=== PATIENT | female | born 1990 | race American Indian/Alaskan Native ===

== ENCOUNTER 2017-07-12 10:40 | Outpatient (CLI) | payer MEDICAID ==
[2017-07-12 11:23] LABS: Bilirubin,Urine NEG (Negative); Blood,Urine NEG (Negative); Color,Urine Yellow (Yellow); Mucus,Urine 1+ /HPF; Protein,Urine <15 mg/dL mg/dL (Negative); Urobilinogen,Urine < 2.0 mg/dL (<2.0)
[2017-07-12 11:42] VITALS: BP 111/61
[2017-07-12] MEDS ORDERED: NORMOSOL-R PH 7.4 1,000 ML IV ONE ×2 (12:00→13:23)
== END 2017-07-12 13:30 | disposition home or self-care (01) ==
LOC: TRG 10:40
PROVIDERS: ATTEND Obstetrics & Gynecology
DX: O47.03 False labor before 37 completed weeks of gestation, third trimester (principal); Z3A.30 30 weeks gestation of pregnancy
CPT/HCPCS: 59025; 81001; 96360

== ENCOUNTER 2017-07-24 13:45 | Outpatient (CLI) | payer MEDICAID ==
[2017-07-24 15:07] LABS: Bacteria,Urine 2+ /HPF (Negative); Bilirubin,Urine NEG (Negative); Blood,Urine NEG (Negative); Color,Urine Yellow (Yellow); Hyaline Casts,Urine 1 /LPF; Mucus,Urine FEW /HPF; Protein,Urine <15 mg/dL mg/dL (Negative); Urobilinogen,Urine < 2.0 mg/dL (<2.0)
[2017-07-24 15:09] LABS: Hematocrit 33.7 % (30.3-42.9); Hemoglobin 11.2 gm/dl (10.1-14.3); Mean Corpuscular HGB Conc 33 % (30-34); Mean Corpuscular Hemoglobin 29 pg (28-32); Mean Corpuscular Volume 88 fl (79-97); Platelet Count 240 K/mm3 (140-440); Red Blood Count 3.84 M/mm3 (3.65-5.03); Red Cell Distribution Width 13.5 % (13.2-15.2)
[2017-07-24 15:32] LABS: Alanine Aminotransferase 14 units/L (7-56); Uric Acid 3.3 mg/dL (3.5-7.6)
[2017-07-24 15:53] VITALS: BP 112/59
== END 2017-07-24 15:55 | disposition home or self-care (01) ==
LOC: TRG 13:45
PROVIDERS: ATTEND Obstetrics & Gynecology
DX: O47.03 False labor before 37 completed weeks of gestation, third trimester (principal); Z79.899 Other long term (current) drug therapy; Z3A.32 32 weeks gestation of pregnancy
CPT/HCPCS: 36415; 59025; 81001; 82565; 82962; 83615; 84450; 84460; 84550; 85027

== ENCOUNTER 2017-08-13 10:06 | Outpatient (CLI) | payer MEDICAID ==
[2017-08-13 10:27] VITALS: BP 128/72
[2017-08-13] MEDS ORDERED: LACTATED RINGERS 500 ML IV ONE (11:43)
--- NOTE | 2017-08-13 14:03 | Ultrasound Report ---
ULTRASOUND OB LIMITED History: well being, evaluate amniotic fluid Technique: Transabdominal ultrasound with Doppler interrogation. Gestation: Single Position: Cephalic Amniotic Fluid: Normal EDSON = 14.7 cm Heart Rate: 146 BPM
== END 2017-08-13 13:02 | disposition home or self-care (01) ==
LOC: TRG 10:06
PROVIDERS: ATTEND Obstetrics & Gynecology
DX: O47.03 False labor before 37 completed weeks of gestation, third trimester (principal); Z3A.34 34 weeks gestation of pregnancy
CPT/HCPCS: 59025; 76815

== ENCOUNTER 2017-08-26 19:23 | Outpatient (CLI) | payer OTHER, MEDICAID ==
[2017-08-26 20:31] VITALS: BP 108/68
[2017-08-26 21:01] LABS: Hematocrit 31.7 % (30.3-42.9); Hemoglobin 10.5 gm/dl (10.1-14.3); Mean Corpuscular HGB Conc 33 % (30-34); Mean Corpuscular Hemoglobin 29 pg (28-32); Mean Corpuscular Volume 86 fl (79-97); Platelet Count 240 K/mm3 (140-440); Red Blood Count 3.67 M/mm3 (3.65-5.03)
[2017-08-26 21:06] LABS: Bilirubin,Urine NEG (Negative); Blood,Urine NEG (Negative); Color,Urine Yellow (Yellow); Mucus,Urine 1+ /HPF; Protein,Urine <15 mg/dL mg/dL (Negative); Urobilinogen,Urine < 2.0 mg/dL (<2.0)
[2017-08-26 21:20] LABS: Alanine Aminotransferase 12 units/L (7-56); Uric Acid 3.4 mg/dL (3.5-7.6)
--- NOTE | 2017-08-26 22:26 | Ultrasound Report ---
FINAL REPORT PROCEDURE: US ABDOMEN LIMITED TECHNIQUE: Real-time sonography in multiple planes of the gallbladder fossa and CBD with imaging of the adjacent liver, pancreas, and right kidney was performed with image documentation. CPT 40997 HISTORY: RIGHT UPPER QUADRANT PAIN COMPARISON: No prior studies are available for comparison. FINDINGS: Liver: Normal size and echotexture with no evidence of cystic or solid mass lesion. Gallbladder: There is an echogenic structure with posterior shadowing at the gallbladder neck, likely a gallstone. No gallbladder wall thickening or pericholecystic fluid. Intrahepatic bile ducts: Normal . Extrahepatic bile ducts: Common bile duct measures 4 millimeters in caliber. Pancreas: Not well-visualized. Right kidney: Normal echotexture. No focal renal mass, calculus, or hydronephrosis. Other: No free fluid. IMPRESSION: Probable gallstone in the gallbladder neck. No sonographic evidence of cholecystitis. No biliary ductal dilatation
--- NOTE | 2017-08-26 22:28 | Ultrasound Report ---
FINAL REPORT PROCEDURE: US OB BPP WO NON-STRESS TECHNIQUE: Sonographic evaluation for breathing, movement, tone, and amniotic fluid volume was performed. CPT 93972 HISTORY: WELL BEING; EDSON COMPARISON: No prior studies are available for comparison. FINDINGS: Amniotic fluid volume: Normal-score 2. At least one vertical pocket > 2 cm or more in vertical axis. breathing: Normal-score 2. movement: Normal-score 2. tone: Normal. Score: 8 of 8. IMPRESSION: Normal biophysical profile.
--- NOTE | 2017-08-26 22:28 | Ultrasound Report ---
FINAL REPORT PROCEDURE: US OB LIMITED TECHNIQUE: Real-time limited sonographic examination was performed for evaluation of fluid volume for each fetus with image documentation (1 or more fetuses). CPT 59078 HISTORY: WELL BEING; EDSON COMPARISON: No prior studies are available for comparison. FINDINGS: There is a single intrauterine gestation. heart rate is 156 beats per minute. Amniotic fluid index measures 10.9 centimeters. IMPRESSION: Amniotic fluid index measures 10.9 centimeters
== END 2017-08-26 22:32 | disposition home or self-care (01) ==
LOC: TRG 19:23
PROVIDERS: ATTEND Obstetrics & Gynecology
DX: O26.893 Other specified pregnancy related conditions, third trimester (principal); O47.02 False labor before 37 completed weeks of gestation, second trimester; R10.11 Right upper quadrant pain; Z3A.36 36 weeks gestation of pregnancy
CPT/HCPCS: 36415; 59025; 76705; 76815; 76819; 81001; 82565; 83615; 84450; 84460; 84550; 85027

== ENCOUNTER 2017-09-08 13:33 | Outpatient (CLI) | payer OTHER, MEDICAID ==
[2017-09-08 13:53] VITALS: BP 118/71
--- NOTE | 2017-09-08 16:11 | Ultrasound Report ---
LIMITED OB ULTRASOUND: NST. Gestation: More Position: Cephalic EDSON = 9.1 cm Heart Rate: 143 BPM age 38 weeks 3 days. Comment: Low normal amniotic fluid volume. BIOPHYSICAL PROFILE: 2 - breathing movements 2 - movements 2 to - posture and tone - Qualitative amniotic fluid volume 8 - TOTAL SCORE OF POSSIBLE 8 Heart Rate (bpm) 138
== END 2017-09-08 15:25 | disposition home or self-care (01) ==
LOC: TRG 13:33
PROVIDERS: ATTEND Obstetrics & Gynecology
DX: O47.1 False labor at or after 37 completed weeks of gestation (principal); Z3A.38 38 weeks gestation of pregnancy
CPT/HCPCS: 59025; 76815; 76819

== ENCOUNTER 2017-09-11 04:08 | Outpatient (CLI) | payer OTHER, MEDICAID ==
[2017-09-11] MEDS ORDERED: VISTARIL PO ONE (06:20)
[2017-09-12 04:11] VITALS: BP 130/60
== END 2017-09-11 07:43 | disposition home or self-care (01) ==
LOC: TRG 04:08
PROVIDERS: ATTEND Obstetrics & Gynecology
DX: O47.1 False labor at or after 37 completed weeks of gestation (principal); Z3A.38 38 weeks gestation of pregnancy
CPT/HCPCS: 59025; Q0177

== ENCOUNTER 2017-09-11 13:02 | Inpatient (IN) | payer OTHER, MEDICAID ==
[2017-09-11] MEDS ORDERED: MORPHINE IM ONE (15:36)
[2017-09-11] MEDS ORDERED: MORPHINE ONE (16:34)
[2017-09-11] MEDS: LACTATED RINGERS 1,000 ML IV SCH ×3 (20:00→23:35)
--- NOTE | 2017-09-11 20:44 | Ultrasound Report ---
FINAL REPORT PROCEDURE: US OB BPP WO NON-STRESS TECHNIQUE: Sonographic evaluation for breathing, movement, tone, and amniotic fluid volume was performed. CPT 72383 HISTORY: well being COMPARISON: No prior studies are available for comparison. FINDINGS: Single live intrauterine gestation is noted with a heart rate of 146 beats per minute Amniotic fluid volume: Score 0. Largest pocket is 1.5 centimeters breathing: Normal-score 2. movement: Normal-score 2. tone: Normal. Score: 8 of 8. IMPRESSION: Total score for biophysical profile is 6/8
--- NOTE | 2017-09-11 20:45 | Ultrasound Report ---
FINAL REPORT PROCEDURE: US OB LIMITED TECHNIQUE: Real-time limited sonographic examination was performed for evaluation of adenoid fluid index for each fetus with image documentation (1 or more fetuses). CPT 39241 HISTORY: LEAKING amniotic fluid COMPARISON: No prior studies are available for comparison. FINDINGS: Single live intrauterine gestation is noted with heart rate of 146 beats per minute. Amniotic fluid index is 3.6 centimeters. Presentation is cephalic. IMPRESSION: Amniotic fluid index is decreased measuring 3.6 centimeters
[2017-09-11] MEDS ORDERED: LACTATED RINGERS 1,000 ML ONE (20:57)
[2017-09-11] MEDS ORDERED: BRETHINE IVP PRN (21:39)
[2017-09-11] MEDS ORDERED: XYLOCAINE 2% INFILTRATI ONE (21:39)
[2017-09-11] MEDS ORDERED: SUBLIMAZE IV PRN (21:39)
[2017-09-11] MEDS ORDERED: ZOFRAN IV PRN (21:39)
[2017-09-11] MEDS ORDERED: NUBAIN IV PRN (21:39)
[2017-09-11] MEDS ORDERED: MINERAL OIL PO PRN (21:39)
[2017-09-11] MEDS ORDERED: STADOL IV PRN (21:39)
[2017-09-11] MEDS ORDERED: BRETHINE SUB-Q PRN (21:39)
[2017-09-11] MEDS ORDERED: SUBLIMAZE ONE (21:43)
[2017-09-11 21:58] LABS: Hematocrit 33.4 % (30.3-42.9); Hemoglobin 10.9 gm/dl (10.1-14.3); Mean Corpuscular HGB Conc 33 % (30-34); Mean Corpuscular Hemoglobin 28 pg (28-32); Mean Corpuscular Volume 85 fl (79-97); Platelet Count 257 K/mm3 (140-440); Red Blood Count 3.93 M/mm3 (3.65-5.03); Red Cell Distribution Width 14.5 % (13.2-15.2)
[2017-09-11] MEDS ORDERED: PITOCin/NS 30 UNIT/500ML 30 UNITS/500 ML BAG IV SCH ×2 (22:00)
[2017-09-11] MEDS ORDERED: PITOCin/NS 20 UNIT/1000ML DRIP 20 UNITS/1,000 ML BAG IV SCH (22:00)
[2017-09-11] MEDS ORDERED: NARCAN 2 MG/2 ML IV PRN (23:24)
[2017-09-11] MEDS ORDERED: ePHEDrine SULFATE IV PRN (23:24)
[2017-09-11] MEDS: ePHEDrine SULFATE IV PRN ×2 (23:31→23:44)
[2017-09-11] MEDS ORDERED: fentaNYL-BUPIV 2 MCG/ML-0.125% 200 MCG/100 ML BAG EPIDURAL SCH (23:45)
[2017-09-12] MEDS: LACTATED RINGERS 1,000 ML IV SCH (02:11)
--- NOTE | 2017-09-12 02:50 | History and Physical Report ---
History of Present Illness Date of examination: 09/12/17 Date of admission: 09/11/17 20:30 Chief complaint: IUP@39, oligohydramnios, early labor History of present illness: Patient presented yesterday twice c/o contractions, she was noted to have varible decelerations and found to have EDSON of 3, on recheck she was 3cm. She progressed to 8cm/90(BBOW)/-2. Past History : 1 Term Births: 0 Premature Births: 0 Living Children: 0 Para: 0 Mult. Births: 0 Prev : 0 Prev. attempt? 0 Aborta: 0 Elect. Ab: 0 Spont. Ab: 0 Ectopics: 0 Past Medical History: Negative Past Medical History Past Surgical History: negative Past Medical History Anesthesia Complications: negative Anemia: negative Autoimmune Disorder: negative Bleeding Disorder: negative Blood Transfusions: negative Breast Disease: negative Diabetes: negative Heart Disease: negative Hypertension: negative Hepatitis/Liver Disease: negative Kidney Disease/UTI: negative Neurologic/Epilepsy/Migraines: negative Phlebitis/Varicosities: negative Psychiatric: negative Pulmonary Disease/Asthma: negative Thyroid Disease: negative Hospitalizations: negative Surgery (Non-mainframe programmer analyst): negative Abnormal PAP: negative SANDRA Exposure: negative Infertility: negative Uterine Anomaly: negative Uterine Surgery (not C/S): negative Other Gynecologic Problems: negative Family Hx: Mother - ovarian Cancer () Social Hx: Single not E/D/S Infection History Hx of STD: none HIV Risk Eval: no Varicella/Chicken Pox Status: Previous Disease Genetic History Congenital Heart Defect: Mom: no Dad: no Sobia Disease: Mom: no Dad: no Thalassemia Mom: no Dad: no Neural Tube Defect Mom: no Dad: no Down's Syndrome Mom: no Dad: no Benny-Sachs Mom: no Dad: no Sickle Cell Disease/Trait Mom: no Dad: no Hemophilia Mom: no Dad: no Muscular Dystrophy Mom: no Dad: no Cystic Fibrosis Mom: no Dad: no [place] Chorea Mom: no Dad: no Mental Retardation Mom: no Dad: no Fragile X Mom: no Dad: no Other Genetic/Chromosomal Disorder Mom: no Dad: no Child w/other defect Mom: no Dad: no Enviromental Exposures Xray Exposure: no Medication, drug, or alcohol use since LMP: no Chemical/Other Exposure: no Exposure to Cat Liter: no Hx of Parvovirus (Fifth Disease): no Occupational Exposure to Children: none Active Medications (reviewed today): None Current Allergies (reviewed today): * AMOXICILLIN (Critical) Past History - Obstetrical History Expected Date of Delivery: 09/19/17 Actual Gestation: 39 Week(s) 0 Day(s) : 1 Medications and Allergies Allergies Allergy/AdvReac Type Severity Reaction Status Date / Time No Known Allergies Allergy Verified 08/13/17 10:07 Home Medications Medication Instructions Recorded Confirmed Last Taken Type No Known Home Medications [No 08/13/17 09/11/17 Unknown History Reported Home Medications] Active Meds: Active Medications Butorphanol Tartrate (Stadol) 2 mg IV Q2H PRN PRN Reason: Pain , Severe (7-10) Ephedrine Sulfate (Ephedrine Sulfate) 10 mg IV Q2M PRN PRN Reason: Hypotension Last Admin: 09/11/17 23:50 Dose: 10 mg Fentanyl (Sublimaze) 100 mcg IV Q2H PRN PRN Reason: Labor Pain Last Admin: 09/11/17 21:46 Dose: 100 mcg Lactated Ringer's (Lactated Ringers) 1,000 mls @ 125 mls/hr IV DIRECT LYDIA Last Admin: 09/12/17 02:11 Dose: 125 mls/hr Oxytocin/Sodium Chloride (Pitocin/Ns 20 Unit/1000ml Drip) 20 units in 1,000 mls @ 125 mls/hr IV DIRECT LYDIA Oxytocin/Sodium Chloride (Pitocin/Ns 30 Unit/500ml) 30 units in 500 mls @ 1 mls /hr IV TITR LYDIA; Protocol Oxytocin/Sodium Chloride (Pitocin/Ns 30 Unit/500ml) 30 units in 500 mls @ 4 mls /hr IV TITR LYDIA; Protocol Last Titration: 09/12/17 00:22 Dose: 8 ml/hr, 8 mls/hr Fentanyl/Bupivacaine/Sodium Chlor (Fentanyl-Bupiv 2 Mcg/Ml-0.125%) 200 mcg in 100 mls @ 12 mls/hr EPIDURAL TITR LYDIA; Protocol Mineral Oil (Mineral Oil) 30 ml PO QHS PRN PRN Reason: Constipation Nalbuphine HCl (Nubain) 10 mg IV Q2H PRN PRN Reason: Pain, Moderate (4-6) Naloxone HCl (Narcan 2 Mg/2 Ml) 0.2 mg IV Q5M PRN PRN Reason: Respiratory sedation Ondansetron HCl (Zofran) 4 mg IV Q8H PRN PRN Reason: Nausea And Vomiting Terbutaline Sulfate (Brethine) 0.25 mg SUB-Q ONCE PRN PRN Reason: Hyperstimulation/Hypertonicity Terbutaline Sulfate (Brethine) 0.25 mg IVP ONCE PRN PRN Reason: Hyperstimulation/Hypertonicity Review of Systems All systems: negative Genitourinary: contractions - Vital Signs Vital signs: Vital Signs Temp Resp BP 98.8 F 24 113/53 09/11/17 21:19 09/11/17 21:19 09/11/17 21:19 Temp Pulse Resp BP Pulse Ox 98.8 F 90 24 117/51 99 09/11/17 21:19 09/12/17 00:28 09/11/17 21:19 09/12/17 00:22 09/12/17 00:28 - Physical Exam Breasts: Positive: deferred Cardiovascular: Regular rate Lungs: Positive: Normal air movement Abdomen: Negative: tenderness Genitourinary (Female): Positive: normal external genitalia, normal perenium Vulva: both: normal Uterus: Positive: enlarged Anus/Rectum: Positive: normal perianal skin Extremities: Positive: normal. Negative: tenderness, edema - Obstetrical FHR: category 1 FHR comments: after verbal consent obtained, AROM clear, ISE and IUPC placed w/o difficulty Uterine Contraction Monitor Mode: Internal Cervical Dilatation: 6 Cervical Effacement Percentage: 70 station: -1 Uterine Contraction Pattern: Regular Results Result Diagrams: 09/11/17 20:11 All other labs normal. Assessment and Plan - Patient Problems (1) 39 weeks gestation of Current Visit: Yes Status: Acute (2) Oligohydramnios Current Visit: Yes Status: Acute Qualifiers: Fetus number: single or unspecified fetus Plan to address problem: continue current pathway, will hold pitocin at 8 for now since contractions are adequate
[2017-09-12] MEDS ORDERED: BICITRA PO ONE (03:57)
[2017-09-12] MEDS ORDERED: REGLAN IV ONE (03:57)
[2017-09-12] MEDS ORDERED: PEPCID IV ONE (03:57)
[2017-09-12] MEDS ORDERED: PITOCin/NS 20 UNIT/1000ML DRIP 20 UNITS/1,000 ML BAG IV SCH ×2 (04:00→06:00)
[2017-09-12] MEDS ORDERED: LACTATED RINGERS 1,000 ML IV SCH (04:00)
[2017-09-12] MEDS ORDERED: ANCEF/STERILE WATER 2 GM/20 ML 2 GM/20 ML SYRINGE IV NR (04:00)
--- NOTE | 2017-09-12 04:03 | Progress Note ---
Assessment and Plan Still with good variability and but change in base line, appears OP. options reveiwed will proceed with c/s. Consent reveiwed and signed - Patient Problems (1) 39 weeks gestation of Current Visit: Yes Status: Acute (2) Oligohydramnios Current Visit: Yes Status: Acute Qualifiers: Fetus number: single or unspecified fetus (3) Failure of cervical dilation Current Visit: Yes Status: Acute Subjective - Subjective Date of service: 09/12/17 Principal diagnosis: IUP@39weeks Interval history: Patient presented yesterday twice c/o contractions, she was noted to have varible decelerations and found to have EDSON of 3, on recheck she was 3cm. She progressed to 8cm/90(BBOW)/-2. Past History : 1 Term Births: 0 Premature Births: 0 Living Children: 0 Para: 0 Mult. Births: 0 Prev : 0 Prev. attempt? 0 Aborta: 0 Elect. Ab: 0 Spont. Ab: 0 Ectopics: 0 Past Medical History: Negative Past Medical History Past Surgical History: negative Past Medical History Anesthesia Complications: negative Anemia: negative Autoimmune Disorder: negative Bleeding Disorder: negative Blood Transfusions: negative Breast Disease: negative Diabetes: negative Heart Disease: negative Hypertension: negative Hepatitis/Liver Disease: negative Kidney Disease/UTI: negative Neurologic/Epilepsy/Migraines: negative Phlebitis/Varicosities: negative Psychiatric: negative Pulmonary Disease/Asthma: negative Thyroid Disease: negative Hospitalizations: negative Surgery (Non-obgyn specialist): negative Abnormal PAP: negative SANDRA Exposure: negative Infertility: negative Uterine Anomaly: negative Uterine Surgery (not C/S): negative Other Gynecologic Problems: negative Family Hx: Mother - ovarian Cancer () Social Hx: Single not E/D/S Infection History Hx of STD: none HIV Risk Eval: no Varicella/Chicken Pox Status: Previous Disease Genetic History Congenital Heart Defect: Mom: no Dad: no Sobia Disease: Mom: no Dad: no Thalassemia Mom: no Dad: no Neural Tube Defect Mom: no Dad: no Down's Syndrome Mom: no Dad: no Benny-Sachs Mom: no Dad: no Sickle Cell Disease/Trait Mom: no Dad: no Hemophilia Mom: no Dad: no Muscular Dystrophy Mom: no Dad: no Cystic Fibrosis Mom: no Dad: no [place] Chorea Mom: no Dad: no Mental Retardation Mom: no Dad: no Fragile X Mom: no Dad: no Other Genetic/Chromosomal Disorder Mom: no Dad: no Child w/other defect Mom: no Dad: no Enviromental Exposures Xray Exposure: no Medication, drug, or alcohol use since LMP: no Chemical/Other Exposure: no Exposure to Cat Liter: no Hx of Parvovirus (Fifth Disease): no Occupational Exposure to Children: none Active Medications (reviewed today): None Current Allergies (reviewed today): * AMOXICILLIN (Critical) Patient reports: contractions Objective - Vital Signs Vital Signs: Vital Signs - 12hr 09/11/17 09/11/17 09/11/17 21:19 23:03 23:08 Temperature 98.8 F Pulse Rate 77 79 Respiratory 24 Rate Blood Pressure Blood Pressure 113/53 [Left] O2 Sat by Pulse 100 100 Oximetry 09/11/17 09/11/17 09/11/17 23:13 23:15 23:17 Temperature Pulse Rate 68 79 66 Respiratory Rate Blood Pressure 119/59 114/56 122/61 Blood Pressure [Left] O2 Sat by Pulse 99 Oximetry 09/11/17 09/11/17 09/11/17 23:18 23:19 23:21 Temperature Pulse Rate 67 82 94 H Respiratory Rate Blood Pressure 122/64 119/58 Blood Pressure [Left] O2 Sat by Pulse 100 Oximetry 09/11/17 09/11/17 09/11/17 23:23 23:25 23:27 Temperature Pulse Rate 79 75 70 Respiratory Rate Blood Pressure 111/60 115/56 Blood Pressure [Left] O2 Sat by Pulse 99 Oximetry 09/11/17 09/11/17 09/11/17 23:28 23:29 23:31 Temperature Pulse Rate 70 79 73 Respiratory Rate Blood Pressure 107/56 103/51 Blood Pressure [Left] O2 Sat by Pulse 98 Oximetry 09/11/17 09/11/17 09/11/17 23:33 23:35 23:37 Temperature Pulse Rate 70 90 68 Respiratory Rate Blood Pressure 92/44 106/51 104/52 Blood Pressure [Left] O2 Sat by Pulse 98 Oximetry 09/11/17 09/11/17 09/11/17 23:38 23:39 23:41 Temperature Pulse Rate 70 69 72 Respiratory Rate Blood Pressure 108/55 108/52 Blood Pressure [Left] O2 Sat by Pulse 100 Oximetry 05/09/11/17 09/11/17 23:43 23:45 23:47 Temperature Pulse Rate 74 66 69 Respiratory Rate Blood Pressure 110/50 104/51 96/48 Blood Pressure [Left] O2 Sat by Pulse 100 Oximetry 09/11/17 09/11/17 09/11/17 23:48 23:49 23:52 Temperature Pulse Rate 91 H 73 74 Respiratory Rate Blood Pressure 104/48 111/52 Blood Pressure [Left] O2 Sat by Pulse 100 Oximetry 09/11/17 09/11/17 09/11/17 23:53 23:55 23:57 Temperature Pulse Rate 73 76 133 H Respiratory Rate Blood Pressure 87/46 126/58 133/59 Blood Pressure [Left] O2 Sat by Pulse 100 Oximetry 09/11/17 09/11/17 09/12/17 23:58 23:59 00:01 Temperature Pulse Rate 79 75 75 Respiratory Rate Blood Pressure 106/55 111/51 Blood Pressure [Left] O2 Sat by Pulse 100 Oximetry 09/12/17 09/12/17 09/12/17 00:03 00:05 00:08 Temperature Pulse Rate 79 83 89 Respiratory Rate Blood Pressure 109/54 112/53 Blood Pressure [Left] O2 Sat by Pulse 100 100 Oximetry 09/12/17 09/12/17 09/12/17 00:12 00:13 00:17 Temperature Pulse Rate 77 84 71 Respiratory Rate Blood Pressure 112/53 105/50 Blood Pressure [Left] O2 Sat by Pulse 100 Oximetry 09/12/17 09/12/17 09/12/17 00:18 00:22 00:23 Temperature Pulse Rate 80 74 78 Respiratory Rate Blood Pressure 117/51 Blood Pressure [Left] O2 Sat by Pulse 100 100 Oximetry 09/12/17 00:28 Temperature Pulse Rate 90 Respiratory Rate Blood Pressure Blood Pressure [Left] O2 Sat by Pulse 99 Oximetry - Exam Cervical Dilatation: 6 Cervical Effacement Percentage: 50 station: -1 Uterine Contraction Pattern: Regular - Labs Labs: Laboratory Results - last 24 hr 09/11/17 09/11/17 20:11 20:11 WBC 11.0 RBC 3.93 Hgb 10.9 Hct 33.4 MCV 85 MCH 28 MCHC 33 RDW 14.5 Plt Count 257 Blood Type A POSITIVE Antibody Screen Negative
[2017-09-12] MEDS ORDERED: XYLOCAINE MPF 2% ONE ×2 (04:23→04:36)
[2017-09-12] MEDS ORDERED: WATER FOR IRRIG STERILE IR ONE (04:25)
[2017-09-12] MEDS ORDERED: NACL 0.9% IR ONE (04:25)
[2017-09-12] MEDS ORDERED: ANCEF/STERILE WATER 2 GM/20 ML IV ONE (04:30)
[2017-09-12] MEDS ORDERED: SUBLIMAZE ONE ×2 (04:34→05:23)
[2017-09-12] MEDS ORDERED: TORADOL ONE (05:21)
[2017-09-12] MEDS ORDERED: VERSED ONE (05:22)
[2017-09-12] MEDS ORDERED: ZOFRAN ONE (05:26)
[2017-09-12] MEDS ORDERED: MILK OF MAGNESIA PO PRN (05:27)
[2017-09-12] MEDS ORDERED: TYLENOL PO PRN (05:27)
[2017-09-12] MEDS ORDERED: TYLENOL PR PRN (05:27)
[2017-09-12] MEDS ORDERED: MYLICON PO PRN (05:27)
[2017-09-12] MEDS ORDERED: CYTOTEC PR PRN (05:27)
[2017-09-12] MEDS ORDERED: NARCAN 0.4 MG/1 ML IV PRN (05:27)
[2017-09-12] MEDS ORDERED: HEMABATE IM PRN (05:27)
[2017-09-12] MEDS ORDERED: PHENERGAN PR PRN (05:27)
[2017-09-12] MEDS ORDERED: MORPHINE IV PRN (05:27)
[2017-09-12] MEDS ORDERED: LANSINOH TP PRN (05:27)
[2017-09-12] MEDS ORDERED: TUCKS PAD TP PRN (05:27)
[2017-09-12] MEDS ORDERED: METHERGINE IM PRN (05:27)
[2017-09-12] MEDS ORDERED: D5LR 1,000 ML IV SCH (06:00)
[2017-09-12] MEDS ORDERED: ANCEF/NS 1 GM/50 ML 1 GM/50 ML BAG IV SCH (06:00)
[2017-09-12] MEDS ORDERED: SODIUM CHLORIDE FLUSH SYRINGE 10 ML IV PRN (06:00)
--- NOTE | 2017-09-12 06:53 | Operative Report ---
Operative Report Operative Report: Date: 09/12/2017 Preoperative diagnosis: 1. Intrauterine at 39 weeks 2. Failure to dilate 3. Oligohydramnios Postoperative diagnosis: 1. Intrauterine at 39 weeks 2. Failure to dilate 3. Oligohydramnios Procedure: Low uterine transverse incision for delivery Surgeon: Candace Saldaña MD Engineering Mechanic: Abigail Munoz Anesthesia: Epidural Anesthesiologist: Edna Covington M.D. Estimated blood loss: 500 mL Urine out: [] mL Findings: Live born male . Weight 6 lbs. 13 oz. Apgars 8 at 1 minute and 9 at 9 minutes. Uterus normal, tubes normal, ovaries normal. Procedure: After risk, benefits, complications, consequences and alternatives for this procedure were discussed with patient and consents were reviewed and signed, she was taken to the OR where epidural anesthesia was bolused. She was then placed in the left lateral tilt position, and prepped and draped in the usual sterile fashion. Timeout was performed, and an appropriate level of anesthesia was noted, a Pfannenstiel incision was made and extended to the fascia which was incised and extended in the lateral directions. The overlying fascia was sharply dissected away from the underlying rectus muscles in the superior and inferior directions. The midline was entered bluntly. The vesicouterine fold was incised and with blunt dissection the bladder flap was created. A transverse incision was made in the lower uterine segment and extended in superiolateral direction with finger fractionation. Clear fluid was noted. The was delivered from cephalic, OP position. Mouth and nose were bulb suctioned. Spontaneous cry and excellent tone were noted. Cord was doubly clamped and cut. The infant was given to /resuscitation team present. The placenta was manually extracted. The uterus was then exteriorized and cleared of any further products of conception or placental tissue. The incision was reapproximated using 0 Vicryl in a running interlocking stitch. Grossly normal uterus, tubes and ovaries were noted. Once hemostasis was noted, the uterus was allowed back into the pelvic cavity. The pelvis was irrigated with warm normal saline. Again hemostasis was noted . Surgicel applied for further hemostasis. Interceed was then placed to prevent adhesions. Then attention was turned to the rectus muscles. The rectus muscles reapproximated using 0 Vicryl in a simple interrupted stitch x 3. Once hemostasis was noted, the fascia was reapproximated using 0 Vicryl running stitch fashion. Once hemostasis was noted skin incision was reapproximated using 4-0 Vicryl on a Dirk needle in a subcuticular manner. Counts were correct 3. Patient tolerated procedure well state recovery room in stable condition.
[2017-09-12] MEDS: ceFAZolin 1 GM in NACL 0.9% 20 ML IV SCH ×2 (12:00→20:55)
[2017-09-12] MEDS: TORADOL IV PRN ×2 (12:25→19:09)
[2017-09-12] MEDS: PERCOCET 5/325 PO PRN ×2 (15:30→21:10)
[2017-09-12 20:11] LABS: Hematocrit 29.2 % (30.3-42.9)
[2017-09-12] MEDS: MOTRIN PO PRN (21:10)
[2017-09-13] MEDS: TORADOL IV PRN (01:38)
[2017-09-13] MEDS ORDERED: BOOSTRIX IM ONE (06:00)
[2017-09-13] MEDS: PERCOCET 5/325 PO PRN ×3 (07:40→22:39)
--- NOTE | 2017-09-13 08:25 | Progress Note ---
Assessment and Plan - Patient Problems (1) delivery delivered Onset Date: ~09/12/17 Current Visit: Yes Status: Acute Plan to address problem: Pt A&O X 3 C/O gas pains states she has been passing gas. VSS FF below umb Lochia small Dressing D&I, to be removed. H&H 02/16 minimal drop after surgery Pt asymptomatic Doing well s/p section P: continue pathway Advance as tolerated Encouraged ambulation Subjective - Subjective Date of service: 09/13/17 (Pt c/o gas pains) Principal diagnosis: Day#1 s/p primary c/s Patient reports: appetite normal (will advance diet as tolerated), voiding normally, pain well controlled, flatus, ambulating normally [place]: doing well Objective - Vital Signs Latest vital signs: Vital Signs Temp Pulse Resp BP 09/13/17 04:41 98.2 F 83 18 112/62 09/13/17 01:17 98.3 F 74 18 114/52 09/12/17 21:28 97.8 F 80 18 104/53 09/12/17 16:15 98.7 F 80 20 104/61 09/12/17 13:30 98.2 F 88 20 103/48 Intake and Output 09/12/17 09/13/17 09/13/17 22:59 06:59 14:59 Intake Total 360 360 Output Total 1200 400 Balance -840 -40 Intake: Oral 240 Intake, Free Water 120 360 Output: Urine 1200 400 Indwelling Catheter 900 Void 300 400 Other: Total, Intake Amount 240 Total, Output Amount 300 200 # Voids Void 0 - Exam Breasts: Present: normal Cardiovascular: Present: Regular rate Lungs: Present: Normal air movement Abdomen: Present: normal appearance, soft, normal bowel sounds Uterus: Present: normal, firm, fundal height below umbilicus Extremities: Present: edema Deep Tendon Reflex Grade: Normal +2 Incision: Present: normal, dry, intact, dressed (to be removed) - Labs Labs: Abnormal lab results 09/12/17 Range/Units 19:30 Hgb 10.0 L (10.1-14.3) gm/dl Hct 29.2 L (30.3-42.9) %
[2017-09-13] MEDS: MOTRIN PO PRN (16:40)
[2017-09-14] MEDS: MOTRIN PO PRN ×2 (02:55→09:34)
[2017-09-14] MEDS: PERCOCET 5/325 PO PRN (06:25)
--- NOTE | 2017-09-14 08:11 | Discharge Summary ---
Providers - Providers Date of Admission: 09/11/17 20:30 Date of discharge: 09/14/17 (pt agrees with d/c) Attending physician: BEATA BUSBY 09/12/17 05:27 Consult to Operating Engineer [CONS] Routine Reason For Exam: Primary care physician: BEATA BUSBY Hospitalization Reason for admission: active labor Delivery: Procedure: primary low transverse Episiotomy: none Laceration: none Incision: normal, dry, intact Other procedures: none complications: none Discharge diagnosis: IUP at term delivered [place] baby: male Hospital course: uncomplicated section Pt A&O X 3 Sitting up in bed having breakfast VSS FF below umb Lochia small Incision D&I Edema noted LE Exp that is nl Instructed to avoid salt, elevate when she can, hydration, may soak feet & legs in Epsom salt water. H&H 02/16 Asymptomatic anemia. Doing well s/p section P: d/c today with instruction RTO 1 week for postop and circ. RX provided. Condition at discharge: Good Disposition: DC- TO HOME OR SELFCARE - Discharge Diagnoses (1) delivery delivered Status: Acute Comment: RTO 1 week postop care Plan - Discharge Medications Prescriptions: Ibuprofen [Motrin 800 MG tab] 800 mg PO TID PRN #30 tablet PRN Reason: Pain Lidocain2.5%/Prilocai2.5% [Emla] 5 gm TP ONCE #1 tube oxyCODONE /ACETAMINOPHEN [Percocet 5/325 mg] 1 - 2 tab PO Q4HR PRN #30 tablet PRN Reason: Pain - Provider Discharge Summary Activity: routine, no sex for 6 weeks, no heavy lifting 4 weeks, no strenuous exercise Diet: routine Instructions: routine Additional instructions: [] Smoking cessation referral if applicable(refer to patient education folder for contact #) [] Refer to [facility] Booklet Call your doctor immediately for: * Fever > 100.5 * Heavy vaginal bleeding ( >1 pad per hour) * Severe persistent headache * Shortness of breath * Reddened, hot, painful area to leg or breast * Drainage or odor from incision. * Keep incision clean and dry at all times and follow doctor's instructions regarding bathing/showering - Follow up plan Follow up: BEATA BUSBY MD [Primary Care Provider] - 7 Days (Congratulations! Please call [phone] to schedule your postoperative visit and your son's circumcision in one week. Bring the EMLA cream with you to his visit. Do NOT use at home. Take medications as prescribed. Call with any concerns.)
[2017-09-14 09:33] VITALS: BP 108/54
== END 2017-09-14 11:33 | disposition home or self-care (01) | DRG 765 ==
LOC: TRG 13:02 → LD 20:30 → TRG 20:30 → OB 09-12 07:14
PROVIDERS: ADMIT Obstetrics & Gynecology; ATTEND Obstetrics & Gynecology
PROC: 10D00Z1 Extraction of Products of Conception, Low, Open Approach (ICD-10-PCS; principal; 2017-09-12)
PROC: 3E0234Z Introduction of Serum, Toxoid and Vaccine into Muscle, Percutaneous Approach (ICD-10-PCS; 2017-09-13)
DX: O62.0 Primary inadequate contractions (principal); O41.03X0 Oligohydramnios, third trimester, not applicable or unspecified; O76 Abnormality in fetal heart rate and rhythm complicating labor and delivery; Z3A.39 39 weeks gestation of pregnancy; Z37.0 Single live birth; Z80.41 Family history of malignant neoplasm of ovary; Z23 Encounter for immunization
CPT/HCPCS: 36415; 76815; 76819; 85014; 85018; 85027; 86592; 86850; 86900; 86901; 88307; 90471; A6250; C1765; J0690; J1885; J2250; J2270; J2405; J2590; J2765; J3010; J7120; J7121